=== PATIENT | female | born 1995 | race Caucasian/White ===

== ENCOUNTER 2018-05-13 17:42 | Emergency (ER) | payer OTHER ==
[~2018-05-13] VITALS: Ht 165.1 cm; Wt 74.8 kg
[2018-05-13 18:04] VITALS: BP 148/83
--- NOTE | 2018-05-13 18:08 | ER.PDOC ---
General Chief Complaint: Abdomen Pain Stated Complaint: LOWER BACK/ABD PAIN Time seen by MD: 18:00 Source: patient Exam Limitations: no limitations History of Present Illness Timing/Duration: week Severity/Quality: mild Radiation: buttocks Method of Injury: bending Associated Symptoms: muscle spasms Prior symptoms/Treatment: Similar symptoms previous Past Medical History Medical History: no pertinent history Surgical History: no surgical history LMP (females 10-50): last week Social History Smoking: cigarettes, less than 1 pack/day Alcohol Use: rarely Drug Use: marijuana Reviewed Nursing Reviewed: Vital Signs, Abn. 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
[2018-05-13 18:09] LABS: BILIRUBIN,URINE NEGATIVE (NEGATIVE); UROBILINOGEN,URINE NORMAL (NEGATIVE)
[2018-05-13 18:23] LABS: APPEARANCE,URINE CLOUDY (CLEAR); UA COLOR YELLOW (YELLOW)
[2018-05-13 18:44] VITALS: BP 148/83
== END 2018-05-13 18:40 | disposition home or self-care (01) ==
LOC: ER 17:42
DX: N39.0 Urinary tract infection, site not specified (principal); M54.14 Radiculopathy, thoracic region; F17.210 Nicotine dependence, cigarettes, uncomplicated; F12.10 Cannabis abuse, uncomplicated
CPT/HCPCS: 81000; 87086; 99283